=== PATIENT | male | born 1990 | race Two or more races ===

== ENCOUNTER 2018-12-06 12:11 | Emergency (ER) | payer OTHER ==
[~2018-12-06] VITALS: Ht 170.2 cm; Wt 93.0 kg
[2018-12-06 12:28] VITALS: BP 137/79
--- NOTE | 2018-12-06 13:15 | NUR ---
Patient discharged to home in stable condition. Written and verbal after care instructions given. Patient verbalizes understanding of instruction.
== END 2018-12-06 13:16 | disposition other institution (70) ==
LOC: ER 12:11
DX: N48.89 Other specified disorders of penis (principal)
CPT/HCPCS: Z7502

== ENCOUNTER 2019-09-23 19:26 | Emergency (ER) | payer BC, OTHER ==
[~2019-09-23] VITALS: Ht 175.3 cm; Wt 90.3 kg
--- NOTE | 2019-09-23 20:11 | NUR ---
BIBS L LOWER RIB AND CHEST PAIN X 2 DAYS. NAUSEA AND VOMITING X1 VSS TO ER BED 1, AWAITING MD GARZON
[2019-09-23] MEDS ORDERED: LIDOCAINE VISCOUS 2% UD 15 ML UDC ONE (20:27)
[2019-09-23] MEDS ORDERED: MAG HYDROX/AL HYDROX/SIMETH 30 ML UDC ONE (20:27)
[2019-09-23] MEDS ORDERED: FAMOTIDINE (20 MG) 20 MG TABLET ONE (20:28)
[2019-09-23] MEDS: FAMOTIDINE (20 MG) 20 MG TABLET PO ONE (20:31)
[2019-09-23] MEDS: MAG HYDROX/AL HYDROX/SIMETH 30 ML UDC PO ONE (20:31)
[2019-09-23] MEDS: LIDOCAINE VISCOUS 2% UD 15 ML UDC MM ONE (20:31)
--- NOTE | 2019-09-23 20:40 | NUR ---
ORDERED RECEIVED AND CARRIED OUT, AWAITING XRAY RESULT
--- NOTE | 2019-09-23 21:18 | NUR ---
Patient discharged to home in stable condition. Written and verbal after care instructions given. Patient verbalizes understanding of instruction.
[2019-09-23 21:21] VITALS: BP 147/81
== END 2019-09-23 21:21 | disposition home or self-care (01) ==
LOC: ER 19:36
DX: R07.89 Other chest pain (principal); R07.81 Pleurodynia; R11.10 Vomiting, unspecified; R14.0 Abdominal distension (gaseous)
CPT/HCPCS: 71100-TC